=== PATIENT | male | born 1940 | race Caucasian/White ===

== ENCOUNTER → 2023-07-04 | Outpatient (CLI) | payer MEDICARE ==
--- NOTE | 2023-07-05 04:16 | MR ---
EXAMINATION TYPE: MR knee RT wo con DATE OF EXAM: 07/04/2023 COMPARISON: Outside right knee x-ray June 25, 2023 HISTORY: Prior xray on pacs, no injury, right anterior knee pain, arthritis,evaluate meniscus TECHNIQUE: Multiplanar, multisequence images of the knee is performed without IV contrast. FINDINGS: MEDIAL MENISCUS: Medial extrusion of medial meniscus on coronal images Truncated appearance posterior horn with abnormal signal extending to superior articular surface and central body. LATERAL MENISCUS: Vague central increased signal does not extend to articular surface. CRUCIATE LIGAMENTS: The anterior and posterior cruciate ligaments are intact and unremarkable. COLLATERAL LIGAMENTS: The medial collateral ligament and lateral collateral ligament complex are inta ct and unremarkable. EXTENSOR MECHANISM: Visualized quadriceps and patellar tendons are intact. EFFUSION: No significant suprapatellar joint effusion. POPLITEAL CYST: Moderate to large size multiseptated popliteal/Borjas's cyst sagittal image 7 for vanessa cameron. TRICOMPARTMENT SPACES: Mild to moderate tricompartment joint space loss and mild spurring. CARTILAGE: Cartilaginous loss medial tibiofemoral compartment. No significant chondromalacia patella. BONE MARROW SIGNAL: Focal oval area of diminished T1 signal abutting the articular surface distal med ial femoral condyle measuring 12 mm transversely coronal image 25 14 mm AP diameter sagittal image 9 has surrounding T2 hyperintensity. OTHER: No additional significant abnormality is appreciated. IMPRESSION: 1. Complex full-thickness tear medial meniscus involving central body and posterior horn. 2. Focal osteochondral injury with surrounding abnormal bone marrow edema distal medial femoral condy le. 3. Moderate to large sized multiseptated popliteal cyst. 4. Tricompartment degenerative changes that are most prominent involving medial tibiofemoral compartm ent as detailed above. 5. Possible intrasubstance tear posterior horn lateral meniscus.
== END | disposition home or self-care (01) ==
LOC: RADMRIMAIN 10:42
PROVIDERS: ATTEND Orthopaedic Surgery
DX: S83.241A Other tear of medial meniscus, current injury, right knee, initial encounter (principal); M71.21 Synovial cyst of popliteal space [Baker], right knee; X58.XXXA Exposure to other specified factors, initial encounter

== ENCOUNTER 2023-08-14 08:00 | Day surgery (SDC) | payer MEDICARE ==
--- NOTE | 2023-08-13 09:47 | HP ---
HISTORY AND PHYSICAL DATE OF SURGERY: 08/14/2023. HISTORY OF PRESENT ILLNESS: Neftali Khan is an 82-year-old gentleman seen with progressive right knee pain. After treatment options were discussed with him, he elected to proceed with right knee arthroscopy. Consent was obtained. Medical clearance was provided by Dr. Smith. PAST MEDICAL HISTORY: Hypertension, hyperlipidemia. PAST SURGICAL HISTORY: Noncontributory. DAILY MEDICATIONS: Atorvastatin. ALLERGIES: None. SOCIAL HISTORY: He denies tobacco use. PHYSICAL EVALUATION OF THE RIGHT KNEE: His range of motion is 0 to 130 degrees. There is a mild to moderate effusion. Tenderness along the medial and lateral joint lines. Positive medial Trey's. Positive lateral Trey's. Ligaments stable. Hip rotation without pain. Distal neurovascular exam is intact IMAGING STUDIES: Right knee radiographs revealed moderate medial compartment osteoarthritis. MRI of right knee revealed a complex medial meniscal tear, moderate to large effusion, and popliteal cyst. IMPRESSION: 1. Internal derangement of right knee with medial meniscal tear. 2. Hyperlipidemia. PLAN: Right knee arthroscopy with partial medial meniscectomy and debridement. MMODL / IJN: [id number] /
[~2023-08-14 08:00] MED LIST: HYDROmorphone 0.5 MG/0.5 ML SYRINGE IVP PRN; LIDOCAINE 1% (10MG/ML) FOR IV START INTRADERMA PRN; droPERidol 5 MG/2 ML VIAL IVP ONE
[2023-08-14] MEDS: LACTATED RINGERS 1,000 ML IV SCH (09:01)
[2023-08-14] MEDS: ONDANSETRON 4 MG/2 ML VIAL IVP ONE (09:03)
[2023-08-14] MEDS: DEXAMETHASONE SOD PHOSPHATE 4 MG/ML 1 ML VIAL IV ONE (09:03)
[2023-08-14] MEDS ORDERED: fentaNYL (PF) 50 MCG/ML 2 ML AMP ONE (09:43)
[2023-08-14] MEDS ORDERED: LIDOCAINE 1% INJ 10MG/ML (20 ML MDV) ONE (09:43)
[2023-08-14] MEDS ORDERED: PROPOFOL 10 MG/ML 20 ML VIAL IV ONE (09:43)
[2023-08-14] MEDS: BUPIVACAINE (PF) 0.25% 30 ML VIAL SQ ONE ×2 (10:06→10:21)
--- NOTE | 2023-08-14 10:36 | P.OP ---
Date of Procedure: 08/14/23 Preoperative Diagnosis: Internal derangement right knee Postoperative Diagnosis: 1. Tear medial and lateral meniscus right knee 2. Reactive synovitis medial, lateral and suprapatellar compartments right knee 3. 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 Arthroscopic partial medial and lateral meniscectomy right knee 2. Arthroscopic partial synovectomy medial, lateral and suprapatellar compartments right knee 3. Arthroscopic chondroplasty medial femoral condyle right knee Anesthesia: SNOWA, local Surgeon: Luis Alberto Jewell Estimated Blood Loss (ml): 6 Pathology: none sent Condition: stable Disposition: PACU Indications for Procedure: 82-year-old gentleman seen with progressive right knee pain. After having treatment options discussed, he elected to proceed with arthroscopy. Operative Findings: See description of procedure Description of Procedure: Patient was taken to the operative suite. Patient underwent a general anesthetic by the department of anesthesia. Patient was given preoperative antibiotics. The right lower extremity was placed in a well-padded arthroscopic leg chen. The right leg was prepped and draped in the normal sterile orthopedic fashion. A lateral parapatellar and suprapatellar incision was made. Trochars were inserted. Arthroscopy was initiated. Suprapatellar pouch revealed diffuse thick reactive synovitis. The patellofemoral joint appeared to articular congruently. There was grade I/II chondromalacia of the patellofemoral joint without significant tears. The scope was guided into the medial gutter. No loose bodies or plica were identified. The scope was then guided into the medial compartment. A medial parapatellar incision was made. Trocar inserted followed by probe. There was a complex tear involving the posterior horn and mid body area of the medial meniscus. There was an area of grade II chondromalacia medial femoral condyle with some osteochondral flap tears present. There was thick reactive synovitis anteriorly. I performed a partial medial meniscectomy getting down to stable meniscal tissue. I performed a chondroplasty of the medial femoral condyle getting down to stable osteochondral tissue. I performed a partial synovectomy decompressing the reactive synovitis. The residual meniscus was probed and was found to be stable. The residual osteochondral surface of the medial femoral condyle was stable. There was good decompression of the synovitis. Scope and probe were then guided into the intercondylar notch. Cruciates were identified, probed and found to be stable. The scope and probe were then guided into lateral compartment. There was a radial tear involving the anterior horn of the lateral meniscus. There was some thick reactive synovitis anteriorly. There was no significant chondromalacia present in the lateral compartment. I performed a partial lateral meniscectomy getting down to stable meniscal tissue. I performed a partial synovectomy decompressing the reactive synovitis anteriorly. The residual meniscus was stable. There was good decompression of the synovitis. The scope was in guided back into the suprapatellar compartment. I introduced a motorized shaver into the suprapatellar compartment. I debrided some piecemeal fragments of meniscus that I encountered. I performed a partial synovectomy. The shaver was now removed. There was good decompression of the synovitis. I now took 1 more look around the entire knee, no residual debris. Instruments were now removed from the joint. The joint was infiltrated with .25% Marcaine. Steri-Strips were applied to the portal sites. Sterile dressings were applied. The patient was placed into a ALEX hose. No tourniquet was utilized. The patient was awakened, transferred to a bed and taken to [facility] very stable satisfactory condition.
[2023-08-14 11:36] VITALS: RESP 18; TEMP 96.8
[2023-08-14 12:30] VITALS: BP 126/70; PULSE 61
== END 2023-08-14 12:25 | disposition home or self-care (01) ==
LOC: OR 08:00
PROVIDERS: ATTEND Orthopaedic Surgery
DX: S83.241A Other tear of medial meniscus, current injury, right knee, initial encounter (principal); S83.281A Other tear of lateral meniscus, current injury, right knee, initial encounter; M65.861 Other synovitis and tenosynovitis, right lower leg; M94.261 Chondromalacia, right knee; I10 Essential (primary) hypertension; E78.5 Hyperlipidemia, unspecified; Z98.41 Cataract extraction status, right eye; Z98.42 Cataract extraction status, left eye; Z90.49 Acquired absence of other specified parts of digestive tract; Z98.890 Other specified postprocedural states; X58.XXXA Exposure to other specified factors, initial encounter
CPT/HCPCS: 29880; J1100; J0690; J2405; J2001; J3010; J2704; J0665